=== PATIENT | male | born 1960 | race Caucasian/White ===

== ENCOUNTER 2017-07-15 10:56 | Outpatient (CLI) | payer OTHER ==
--- NOTE | 2017-07-15 13:23 | MRI ---
BRAIN MRI WITHOUT CONTRAST: Date: 07/15/17 HISTORY: Programmable HEAD OF MARK[employer]OMET[employer] shunt catheter. Evaluate for hydrocephalus. Patient is confused and altered. COMPARISON: None. TECHNIQUE: Brain MRI is performed without intravenous Gadolinium administration. Multisequential, multiplanar i maging performed. FINDINGS: There is a HEAD [employer] shunt catheter via the right parietal approach. Evaluation of the shunt catheter is sl ightly limited due to susceptibility artifact. The catheter appears to terminate in or adjacent to t he body of the right lateral ventricle. There is metallic susceptibility artifact also associated with multiple metallic devices in the righ t temporal calvarium. There is a small right frontal bur hole with a track for a previous [employer] shunt c atheter. There is extensive malacic and gliotic change involving the right occipital lobe. Additional mild ma lacic and gliotic change is suggested in the right frontal lobe. There is atrophy, greater than expe cted for patient's age. The left cerebrum demonstrates preservation of cortical bowie-white matter di fferentiation. Calvarium has a normal marrow signal intensity. Midline brain parenchymal structures are unremarkabl e. Note, the cerebellar vermis is diminutive. Mild mucosal thickening of the sinuses. Adequate mastoid air cell aeration. IMPRESSION: 1. Right parietal [employer] shunt catheter. 2. No evidence of hydrocephalus. 3. Atrophy, greater than expected for patient age. 4. Malacic and gliotic changes of right cerebrum. POS: [facility]
== END 2017-07-15 10:57 | disposition home or self-care (01) ==
LOC: TBSIIMAG 10:56
PROVIDERS: ATTEND Neurological Surgery
DX: G91.9 Hydrocephalus, unspecified (principal); Z98.2 Presence of cerebrospinal fluid drainage device
CPT/HCPCS: 70551